=== PATIENT | male | born 2000 | race Caucasian/White ===

== ENCOUNTER 2021-01-18 07:43 | Emergency (ER) | payer OTHER ==
[~2021-01-18 07:43] MED LIST: ALL DAY ALLERGY10 MG PO; FLONASE ALLER15.8 ML; ILOTYCIN1 GM OU; MEDROL 4MG DOSEP4 MG PO
[2021-01-18 08:22] LABS: BASOPHIL 0.5 % (0-2); EOSINOPHIL 0.7 % (0-5); HCT 49.8 % (42.0-52.0); HGB 16.8 g/dl (13.2-18.0); LYMPHOCYTE 32.6 % (15-48); MCH 29.9 pg (25.0-31.0); MCHC 33.7 g/dL (32.0-36.0); MCV 88.8 fL (78.0-100.0); MONOCYTE 7.2 % (0-12); MPV 9.8 fL (6.0-9.5); NEUTROPHIL 58.8 % (41-80); NRBC 0; PLT 279 K/uL (150-400); RBC 5.61 M/uL (4.70-6.00); RDW 13.1 % (11.5-14.0); WBC 10.1 K/uL (4.0-10.5)
[2021-01-18 08:42] LABS: ALBUMIN 4.2 g/dL (3.4-5.0); BILIRUBIN - TOTAL 0.3 mg/dL (0.2-1.0); BUN/CREAT RATIO (CALC) 16.5 RATIO; CREATININE 0.97 mg/dL (0.67-1.17); GLOBULIN (CALCULATION) 3.4 g/dL; POTASSIUM 3.7 mmol/L (3.5-5.1); TOTAL PROTEIN 7.6 g/dL (6.4-8.2)
[2021-01-18] MEDS ORDERED: PROTONIX 40MG T40 MG PO (09:05)
[2021-01-18] MEDS ORDERED: ZUPLENZ8 MG PO (09:05)
== END 2021-01-18 09:23 | disposition home or self-care (01) ==
LOC: FER 07:43
PROVIDERS: Emergency Medicine
DX: K21.9 Gastro-esophageal reflux disease without esophagitis (principal); R07.89 Other chest pain; R11.2 Nausea with vomiting, unspecified; F17.210 Nicotine dependence, cigarettes, uncomplicated
CPT/HCPCS: 36415; 71046; 80053; 83690; 84484; 85025

== ENCOUNTER 2021-02-22 17:38 | Emergency (ER) | payer OTHER ==
[~2021-02-22 17:38] MED LIST changes: +PROTONIX 40MG T40 MG PO; +ZUPLENZ8 MG PO
[2021-02-22 19:27] LABS: BASOPHIL 0.7 % (0-2); EOSINOPHIL 0.7 % (0-5); HCT 49.8 % (42.0-52.0); HGB 16.9 g/dl (13.2-18.0); LYMPHOCYTE 28.5 % (15-48); MCH 29.3 pg (25.0-31.0); MCHC 33.9 g/dL (32.0-36.0); MCV 86.5 fL (78.0-100.0); MONOCYTE 9.5 % (0-12); MPV 9.6 fL (6.0-9.5); NEUTROPHIL 60.5 % (41-80); NRBC 0; PLT 303 K/uL (150-400); RBC 5.76 M/uL (4.70-6.00); RDW 13.1 % (11.5-14.0); WBC 8.9 K/uL (4.0-10.5)
[2021-02-22 19:45] LABS: BUN/CREAT RATIO (CALC) 15.3 RATIO; CREATININE 0.98 mg/dL (0.67-1.17); POTASSIUM 3.8 mmol/L (3.5-5.1)
== END 2021-02-22 21:35 | disposition home or self-care (01) ==
LOC: FER 17:38
PROVIDERS: Nurse Practitioner Family
DX: R11.2 Nausea with vomiting, unspecified (principal); R19.7 Diarrhea, unspecified; Z87.19 Personal history of other diseases of the digestive system
CPT/HCPCS: 36415; 80048; 85025; 99284; J7030

== ENCOUNTER 2021-08-08 17:47 | Emergency (ER) | payer OTHER | END 2021-08-08 18:31 | disposition home or self-care (01) | LOC: FER 17:47 | DX: F41.1 Generalized anxiety disorder (principal) | CPT/HCPCS: 99283 ==